=== PATIENT | male | born 1935 | race African-American/Black ===

== ENCOUNTER 2022-06-13 09:53 | Emergency (ER) | payer OTHER ==
--- OUTSIDE RECORDS SUMMARY | 2022-06-13 09:57 | XMS REPORT | Clinical Summary ---
:1935 Author Organization [facility] MD [facility] Address [address] [place] [address] Care Team Providers Name Role Phone Barry Shin MD Primary Care Provider Del Rivera Unavailable Td Coyne MD Unavailable Allergies Active Allergy Reactions Severity Noted Date Comments Penicillin Hives, Itching High 08/31/2016 Medications Medication Sig Dispensed Refills Start Date End Date Status aspirin 81 mg Chew 1 tablet 0 Ac tive chewable tablet daily. lisinopril Take 1 tablet by 0 Ac tive (PRINIVIL,ZESTRIL) 20 mouth daily. mg tablet TRIAMTERENE-HYDROCHLO Take 0.5 tablets by 0 Active ROTHIAZID ORAL mouth daily. multivitamin capsule Take 1 capsule by 0 Active mouth daily. pravastatin Take 40 mg by mouth 0 Active (PRAVACHOL) 40 mg daily. tablet tamsulosin HCl Take 1 capsule by 0 Active (TAMSULOSIN ORAL) mouth daily. finasteride (PROSCAR) Take 5 mg by mouth 0 Active 5 mg tablet daily. brimonidine 0.2% Administer 1 drop 0 Active ophthalmic solution to both eyes twice daily. timolol (BETIMOL) Administer 1 drop 0 Active 0.25 % ophthalmic to both eyes at solution bedtime. latanoprost (XALATAN) Administer 1 drop 0 Active 0.005% ophthalmic to both eyes daily. solution bisacodyl (DULCOLAX) Take 5 mg by mouth 0 Active 5 mg EC tablet once as needed. polyethylene glycol Take 17 g by mouth 0 Active (MIRALAX) 17 g packet as needed. calcium Take 1 tablet by 0 Act mary anne carbonate-vitamin D3 mouth daily. (calcium-vitamin D) 500 mg - 200 units (1,250 mg calcium carbonate) tablet morphine (LAWANDA) 10 Take 10 mg by mouth 0 Active mg 24 hr daily. capsuleIndications: chronic pain, 10 mg at night leuprolide, 3 month, Inject 22.5 mg into 0 Active (LUPRON DEPOT) 22.5 the shoulder, mg injection thigh, or buttocks every 3 (three) months. LAST DOSE 05/07/2018 sildenafil (VIAGRA) Take 25 mg by mouth 0 Active 25 MG tablet as needed for erectile dysfunction. 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 Removed part of sternum and subs eqently ribs due to infe ction. CIRCUMCISION, PRIMARY 10/01/2015 - 09/30/2016 CARPAL TUNNEL RELEASE Right Medical History Medical History Date Comments Prostate cancer 11/2017 Hypertension Mixed hyperlipidemia Type 2 diabetes mellitus Glaucoma Osteoarthritis Benign prostatic hyperplasia Nephrolithiasis Legal blindness Carpal tunnel syndrome Family History Medical History Relation Name Comments Prostate cancer Brother 1 Prostate cancer Brother 2 Diabetes Mother Hypertension Mother Breast cancer Sister Diabetes Sister Heart disease Sister Relation Name Status Comments Brother 1 Brother 2 Alive Mother Sister Social History Tobacco Use Types Packs/Day Years Used Date Former Smoker Cigarettes 1 32 04/23/1948 - 0 04/23/1980 Smokeless Tobacco: Never Used Alcohol Use Standard Drinks/Week Comments No 0 (1 standard drink = 0.6 oz pure alcoho l) Sex Assigned at Date Recorded Not on file Obstetrics History Last Filed Vital Signs Not on file Plan of Treatment Health Maintenance Due Date Last Done Comments COVID-19 Vaccination (#1) 1935 Results Not on fileafter 06/13/2021 Insurance Payer Benefit Plan / Subscriber ID Effective Dates Phone Addre ss Type Group MEDICARE MEDICARE PART [id number] 1992-Maria De Jesus [phone] [employer] Medicare A AND B t 2 SOLUTIONS [address] [place] [address] Care Teams 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
--- OUTSIDE RECORDS SUMMARY | 2022-06-13 09:59 | XMS REPORT | Continuity of Care Document ---
:[address] [facility] t Address [address] [place] [address] Care Team Providers Name Role Phone Barry Shin MD Primary Care Physician ALKA Attending Clinician Unavailable DAIANA HERNANDEZ Attending Clinician Unavailable Daiana James Attending Clinician YASIR SHRESTHA Attending Clinician Unavailable Yasir Shrestha MD Attending Clinician EDWARD MARTINEZ Attending Clinician Unavailable Lino Mcnamara Attending Clinician Edward Martinez MD Attending Clinician CARROL MALLORY Attending Clinician Unavailable Carrol Mallory DO Attending Clinician ALKA Admitting Clinician Unavailable Payers Payer Name Policy Type Policy Number Effective Date Expiration Date [facility] [id number] 2005 00:00:00 Problems Condition Condition Condition Status Onset Resolution Last Treating Co mments Source Name Details Category Date Date Treatment Clinician Date Erectile Erectile Disease Active 2017-10 Unive rs dysfunctio dysfunctio 10-23 it y of n due to n due to 00:00: [place] arterial arterial 00 insufficie insufficie [facility] 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 it y of on on 00:00: [place] 00 [facility] Pain due Pain due Disease Active Unive rs to to 04-23 [place] of neoplastic neoplastic [place] disease disease 00 [place] Mirela vizcarra [facility] Tinnitus Tinnitus Disease Active Unive rs 04-20 ity of 00:00: [place] 00 MD Mirela vizcarra [facility] 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 00:00: [place] 00 MD Mirela vizcarra [facility] Elevated Elevated Disease Active Unive rs prostate prostate 04-20 ity of specific specific 00:00: [place] antigen antigen 00 (PSA) (PSA) [facility] 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 00 MD Mirela vizcarra [facility] No known No known Disease Unive rs active active ity of problems problems [facility] Allergies, Adverse Reactions, Alerts Allergy Allergy Status Severity Reaction(s) Onset Inactive Treating Comm ents Source Name Type Date Date Clinician Penicill Propensi Active Itching 2015-10 Unive rs in ty to 11-01 ity of adverse 00:00: [place] reaction 00 MD giuseppe Dietz [facility] PENICILL DRUG Active High Hives 2015-10 Univers IN INGREDI 11-01 ity of 00:00: [place] 00 Medical Branch Family History Family Member Diagnosis Comments Start Date Stop Date Source Natural brother Prostate cancer [facility] [place] [facility] [place] Natural mother Diabetes [facility] Dillan [facility] [place] Natural mother Hypertension [facility] [place] MD Grimaldo Cance r [place] Natural sister Breast cancer [facility] [place] [facility] [place] Natural sister Diabetes [facility] Dillan Cance r [place] Natural sister Heart disease [facility] [place] Cance r [place] Social History Social Habit Start Date Stop Date Quantity Comments Source Exposure to 2022-03-12 2022-03-22 Not sure [facility] SARS-CoV-2 (event) 00:00:00 19:33:00 [facility] Alcohol intake 2019-09-09 2019-09-09 Current University of 00:00:00 00:00:00 non-drinker of Rima nguyen alcohol [facility] (finding) Cigarettes smoked 2018-04-23 2018-04-23 Univers ity of current (pack per 00:00:00 00:00:00 [place] Lore Grimaldo ) - Reported Cancer Ce nter Cigarette 2018-04-23 2018-04-23 University of pack-years 00:00:00 00:00:00 [place] MD Payan [facility] Tobacco use and 2018-04-23 2018-04-23 Smokeless Universit y of exposure 00:00:00 00:00:00 tobacco non-user [facility] History of tobacco 1948-04-23 1980-04-23 Cigarette Smoker University of use 00:00:00 00:00:00 [place] MD Schuyler dial [facility] At [birth year] [facility] [place] MD Payan [facility] Smoking Status Start Date Stop Date Source Ex-smoker 2018-04-23 00:00:00 2018-04-23 [facility] Medications Ordered Filled Start Stop Current Ordering Indication Dosage Frequency Signature Comments Components Source Medication Medication Date Date Medication? Clinician (SIG) Name Name cefdinir 2021- No 300mg 300 mg, Univ ers (OMNICEF) 03-23 Oral, ity of capsule 300 02:45: 01:53 ONCE, 1 [place] mg 00 :00 dose, On Medical Wed Branch 03/22/22 at 2145, MICHEAL
Re ason for Anti-Infec tive: Documented Infection< br>Documen jane Infection Site: Urine
D uration of Therapy: 7 days cefdinir 2021- Yes [id number] 300mg Take 1 Univers 300 mg 03-22 capsule by ity of capsule 00:00: 04:59 mouth 2 [place] 00 :00 (two) Medical times Branch daily for 10 days. iopamidol 2021- No [id number] 120mL 120 mL, Univers (ISOVUE 4-04 04-04 Intravenou ity o f 370-500 mL) 22:40: 22:40 s, ONCE, 1 [place] injection 00 :00 dose, On Medica l 120 mL 01/02/22 Branch at 1745, Routine docusate Yes [id number] 250mg Take 1 Un justino sodium 250 4-04 capsule by ity of mg capsule 00:00: mouth [place] 00 daily. Medical Branch ondansetron Yes [id number] 4mg Take 1 Univers 4 mg 4-04 tablet by ity of disintegrat 00:00: mouth [place] ing tablet 00 every 4 Medica l (four) Branch hours as needed for Nausea and Vomiting (N/V). polyethylen Yes [id number] 1{packe Take 1 Univers e glycol 4-04 t} Packet by ity of 3350 00:00: mouth [place] (MIRALAX) 00 every 24 Medica l 17 gram (twenty-fo Branch powder ur) hours as needed for Constipati on. docusate Yes [id number] 250mg Take 1 Un justino sodium 250 4-04 capsule by ity of mg capsule 00:00: mouth [place] 00 daily. Medical Branch ondansetron Yes [id number] 4mg Take 1 Univers 4 mg 4-04 tablet by ity of disintegrat 00:00: mouth [place] ing tablet 00 every 4 Medica l (four) Branch hours as needed for Nausea and Vomiting (N/V). polyethylen Yes [id number] 1{packe Take 1 Univers e glycol 4-04 t} Packet by ity of 3350 00:00: mouth [place] (MIRALAX) 00 every 24 Medica l 17 gram (twenty-fo Branch powder ur) hours as needed for Constipati on. docusate Yes [id number] 250mg Take 1 Un justino sodium 250 4-04 capsule by ity of mg capsule 00:00: mouth [place] 00 daily. Medical Branch ondansetron Yes [id number] 4mg Take 1 Univers 4 mg 4-04 tablet by ity of disintegrat 00:00: mouth [place] ing tablet 00 every 4 Medica l (four) Branch hours as needed for Nausea and Vomiting (N/V). polyethylen Yes [id number] 1{packe Take 1 Univers e glycol 4-04 t} Packet by ity of 3350 00:00: mouth [place] (MIRALAX) 00 every 24 Medica l 17 gram (twenty-fo Branch powder ur) hours as needed for Constipati on. docusate Yes [id number] 250mg Take 1 Un justino sodium 250 4-04 capsule by ity of mg capsule 00:00: mouth [place] 00 daily. Medical Branch ondansetron Yes [id number] 4mg Take 1 Univers 4 mg 4-04 tablet by ity of disintegrat 00:00: mouth [place] ing tablet 00 every 4 Medica l (four) Branch hours as needed for Nausea and Vomiting (N/V). polyethylen Yes [id number] 1{packe Take 1 Univers e glycol 4-04 t} Packet by ity of 3350 00:00: mouth [place] (MIRALAX) 00 every 24 Medica l 17 gram (twenty-fo Branch powder ur) hours as needed for Constipati on. cefTRIAXone 2021- No 1000mg 1,000 mg, Univers (ROCEPHIN) 11-29 IV ity of 1,000 mg in 07:45: 07:10 Piggyback, [place] NaCl 0.9% 00 :00 ONCE, 1 Medical (NS) 50 mL dose, On Branc h MINI-BAG Sun11/29/21 at 0145, Administer over 30 Minutes, 50 mL
R vianca for Anti-Infec tive: Empiric Therapy for Suspected Infection< br>Empiric Therapy Site: Urine
D uration of therapy: 72 hours ondansetron 2021- No 4mg 4 mg, Slow Univers (ZOFRAN 11-29 IV Push, ity of (PF)) 06:30: 05:52 ONCE, 1 [place] injection 4 00 :00 dose, On Medi julio mg Sun11/29/21 Branch at 0030, MICHEAL ondansetron Yes [id number] 4mg Take 1 Univers 4 mg 3-01 tablet by ity of disintegrat 00:00: mouth [place] ing tablet 00 every 8 Medica l (eight) Branch hours as needed for Nausea and Vomiting (N/V). ondansetron Yes [id number] 4mg Take 1 Univers 4 mg 3-01 tablet by ity of disintegrat 00:00: mouth [place] ing tablet 00 every 8 Medica l (eight) Branch hours as needed for Nausea and Vomiting (N/V). ondansetron Yes [id number] 4mg Take 1 Univers 4 mg 3-01 tablet by ity of disintegrat 00:00: mouth [place] ing tablet 00 every 8 Medica l (eight) Branch hours as needed for Nausea and Vomiting (N/V). ondansetron Yes [id number] 4mg Take 1 Univers 4 mg 3-01 tablet by ity of disintegrat 00:00: mouth [place] ing tablet 00 every 8 Medica l (eight) Branch hours as needed for Nausea and Vomiting (N/V). ondansetron Yes [id number] 4mg Take 1 Univers 4 mg 3-01 tablet by ity of disintegrat 00:00: mouth [place] ing tablet 00 every 8 Medica l (eight) Branch hours as needed for Nausea and Vomiting (N/V). cephALEXin 2021- No [id number] 500mg Take 1 Univers (KEFLEX) 3-01 03-09 capsule by ity of 500 mg 00:00: 05:59 mouth 3 [place] capsule 00 :00 (three) Medical times Branch daily for 7 days. aspirin 81 Yes 1{tbl} Chew 1 Uni vers mg chewable 2-12 tablet ity of tablet 13:08: daily. [place] 19 [facility] lisinopril Yes 1{tbl} Take 1 Uni vers (PRINIVIL,Z 2-12 tablet by ity of ESTRIL) 20 13:08: mouth [place] mg tablet 19 daily. MD [facility] TRIAMTERENE Yes .5{tbl} Take 0.5 Univers -HYDROCHLOR 2-12 tablets by it y of OTHIAZID 13:08: mouth [place] ORAL 19 daily. MD Mirela vizcarra [facility] [place] multivitami Yes 1{capsu Take 1 U nivers n capsule 2-12 le} capsule by ity of 13:08: mouth [place] 19 daily. MD Mirela vizcarra [facility] pravastatin Yes 40mg Take 40 mg Univers (PRAVACHOL) 2-12 by mouth ity of 40 mg 13:08: daily. [place] tablet 19 MD Mireal vizcarra [facility] tamsulosin Yes 1{capsu Take 1 Un justino HCl 2-12 le} capsule by ity of (TAMSULOSIN 13:08: mouth [place] ORAL) 19 daily. MD Mirela vizcarra [facility] finasteride Yes 5mg Take 5 mg U nivers (PROSCAR) 5 2-12 by mouth ity of mg tablet 13:08: daily. [place] 19 [facility] brimonidine Yes 1[drp] Administer Univers 0.2% 2-12 1 drop to ity of ophthalmic 13:08: [place] eyes [place] solution 19 twice MD daily. [facility] timolol Yes 1[drp] Administer Un justino (BETIMOL) 2-12 1 drop to ity o f 0.25 % 13:08: both eyes [place] ophthalmic 19 at MD [place] [facility]. [facility] aspirin 81 Yes 1{tbl} Chew 1 Uni vers mg chewable 2-12 tablet ity of tablet 13:08: daily. MD Mirela vizcarra [facility] lisinopril Yes 1{tbl} Take 1 Uni vers (PRINIVIL,Z 2-12 tablet by ity of ESTRIL) 20 13:08: mouth [place] mg tablet 19 daily. MD Mirela vizcarra [facility] latanoprost Yes 1[drp] Administer Univers (XALATAN) 2-12 1 drop to ity o f 0.005% 13:08: both eyes [place] ophthalmic 19 daily. [facility] TRIAMTERENE Yes .5{tbl} Take 0.5 Univers -HYDROCHLOR 2-12 tablets by it y of OTHIAZID 13:08: mouth [place] ORAL 19 daily. MD Mirela vizcarra [facility] multivitami Yes 1{capsu Take 1 U nivers n capsule 2-12 le} capsule by ity of 13:08: mouth [place] 19 daily. MD Anderso [facility] pravastatin Yes 40mg Take 40 mg Univers (PRAVACHOL) 2-12 by mouth ity of 40 mg 13:08: daily. [place] tablet 19 MD Mirela vizcarra [facility] tamsulosin Yes 1{capsu Take 1 Un justino HCl 2-12 le} capsule by ity of (TAMSULOSIN 13:08: mouth [place] ORAL) 19 daily. MD Mirela vizcarra [facility] finasteride Yes 5mg Take 5 mg U nivers (PROSCAR) 5 2-12 by mouth ity of mg tablet 13:08: daily. [place] 19 MD Mirela vizcarra [facility] brimonidine Yes 1[drp] Administer Univers 0.2% 2-12 1 drop to ity of ophthalmic 13:08: [place] eyes [place] solution 19 twice MD [facility]. [facility] timolol Yes 1[drp] Administer Un justino (BETIMOL) 2-12 1 drop to ity o f 0.25 % 13:08: both eyes [place] ophthalmic 19 at MD [place] bedtime. [facility] latanoprost Yes 1[drp] Administer Univers (XALATAN) 2-12 1 drop to ity o f 0.005% 13:08: both eyes [place] ophthalmic 19 daily. MD elly vizcarra [facility] bisacodyl Yes 5mg Take 5 mg Uni vers (DULCOLAX) 2-12 by mouth ity o f 5 mg EC 13:08: once as [place] tablet 19 needed. MD Mirela vizcarra [facility] polyethylen Yes 17g Take 17 g U nivers e glycol 2-12 by mouth ity of (MIRALAX) 13:08: [place] needed. [place] 17 g packet 19 MD Mirela vizcarra [facility] bisacodyl Yes 5mg Take 5 mg Uni vers (DULCOLAX) 2-12 by mouth ity o f 5 mg EC 13:08: once as [place] tablet 19 needed. MD Mirela vizcarra [facility] calcium Yes 1{tbl} Take 1 Univer s carbonate-v 2-12 tablet by ity of itamin D3 13:08: mouth [place] (calcium-vi 19 daily. MD tamin D) Anderso 500 mg - n 200 units Cancer (1,250 mg [place] calcium carbonate) tablet morphine Yes chronic 10mg Take 10 mg Univers (LAWANDA) 10 2-12 pain by mouth ity of mg 24 hr 13:08: daily. [place] capsule 19 MD Mirela vizcarra [facility] leuprolide, Yes 22.5mg Inject Un justino 3 month, 2-12 22.5 mg ity of (LUPRON 13:08: into the [place] DEPOT) 22.5 19 shoulder, MD mg thigh, or Anderso injection buttocks n every 3 Cancer (three) Center months. LAST DOSE 05/07/2018 sildenafil Yes 25mg Take 25 mg U nivers (VIAGRA) 25 2-12 by mouth ity of MG tablet 13:08: as needed Al[place] as 19 for erectile Anderso [facility]an [facility] polyethylen Yes 17g Take 17 g U nivers e glycol 2-12 by mouth ity of (MIRALAX) 13:08: as needed. [place] 17 g packet 19 MD Mirela vizcarra [facility] calcium Yes 1{tbl} Take 1 Univer s carbonate-v 2-12 tablet by ity of itamin D3 13:08: mouth [place] (calcium-vi 19 daily. MD clem Galvan) Anderso 500 mg - n 200 units Cancer (1,250 mg [place] calcium carbonate) tablet morphine Yes chronic 10mg Take 10 mg Univers (LAWANDA) 10 2-12 pain by mouth ity of mg 24 hr 13:08: daily. [place] capsule 19 MD Mirela vizcarra [facility] leuprolide, Yes 22.5mg Inject Un justino 3 month, 2-12 22.5 mg ity of (LUPRON 13:08: into the [place] DEPOT) 22.5 19 shoulder, MD mg thigh, or Anderso injection buttocks n every 3 Cancer (three) Center months. LAST DOSE 05/07/2018 sildenafil Yes 25mg Take 25 mg U nivers (VIAGRA) 25 2-12 by mouth ity of MG tablet 13:08: as needed [place] 19 for erectile Andjorge dysfumini vizcarra. [facility] aspirin 81 Yes 1{tbl} Chew 1 Uni vers mg chewable 2-12 tablet ity of tablet 13:08: daily. 19 MD [facility] lisinopril Yes 1{tbl} Take 1 Uni vers (PRINIVIL,Z 2-12 tablet by ity of ESTRIL) 20 13:08: mouth [place] mg tablet 19 daily. MD Mirela vizcarra [facility] TRIAMTERENE Yes .5{tbl} Take 0.5 Univers -HYDROCHLOR 2-12 tablets by it y of OTHIAZID 13:08: mouth [place] ORAL 19 daily. MD Mirela vizcarra [facility] multivitami Yes 1{capsu Take 1 U nivers n capsule 2-12 le} capsule by ity of 13:08: mouth [place] 19 daily. MD Mirela vizcarra [facility] pravastatin Yes 40mg Take 40 mg Univers (PRAVACHOL) 2-12 by mouth ity of 40 mg 13:08: daily. [place] tablet 19 [facility] tamsulosin Yes 1{capsu Take 1 Un justino HCl 2-12 le} capsule by ity of (TAMSULOSIN 13:08: mouth [place] ORAL) 19 daily. [facility] finasteride Yes 5mg Take 5 mg U nivers (PROSCAR) 5 2-12 by mouth ity of mg tablet 13:08: daily. MD [facility] brimonidine Yes 1[drp] Administer Univers 0.2% 2-12 1 drop to ity of ophthalmic 13:08: both eyes [place] solution 19 twice MD [facility]. [facility] timolol Yes 1[drp] Administer Un justino (BETIMOL) 2-12 1 drop to ity o f 0.25 % 13:08: both eyes [place] ophthalmic 19 at MD [place] bedtime. [facility] latanoprost Yes 1[drp] Administer Univers (XALATAN) 2-12 1 drop to ity o f 0.005% 13:08: both eyes [place] ophthalmic 19 daily. [facility] bisacodyl Yes 5mg Take 5 mg Uni vers (DULCOLAX) 2-12 by mouth ity o f 5 mg EC 13:08: once as [place] tablet 19 needed. MD Mirela vizcarra [facility] polyethylen Yes 17g Take 17 g U nivers e glycol 2-12 by mouth ity of (MIRALAX) 13:08: as needed. [place] 17 g packet 19 MD Mirela vizcarra [facility] calcium Yes 1{tbl} Take 1 Univer s carbonate-v 2-12 tablet by ity of itamin D3 13:08: mouth [place] (calcium-vi 19 daily. MD clem Galvan) Anderso 500 mg - n 200 units Cancer (1,250 mg [place] calcium carbonate) tablet morphine Yes chronic 10mg Take 10 mg Univers (LAWANDA) 10 2-12 pain by mouth ity of mg 24 hr 13:08: daily. [place] capsule 19 MD Mirela vizcarra [facility] leuprolide, Yes 22.5mg Inject Un justino 3 month, 2-12 22.5 mg ity of (LUPRON 13:08: into the [place] DEPOT) 22.5 19 shoulder, mg thigh, or Anderso injection buttocks n every 3 Cancer (three) Center months. LAST DOSE 05/07/2018 sildenafil Yes 25mg Take 25 mg U nivers (VIAGRA) 25 2-12 by mouth ity of MG tablet 13:08: as needed [place] 19 for MD radha Dietz dysfunctiwallace n n. [facility] Vital Signs Vital Name Observation Time Observation Value Comments Source Systolic blood 2022-03-23 05:00:00 121 mm[facility]Hg[facility] Diastolic blood 2022-03-23 05:00:00 80 mm[Hg] [facility] Heart rate 2022-03-23 05:00:00 79 /min [facility] Respiratory rate 2022-03-23 05:00:00 17 /min [facility] Oxygen saturation in 2022-03-23 05:00:00 98 /min [facility] Arterial blood by [facility] Pulse oximetry Branch Body temperature 2022-03-23 00:39:00 37.11 Maya [facility] Systolic blood 2022-03-10 17:06:16 114 mm[Hg] [facility] sity of pressure [place] [facility] Diastolic blood 2022-03-10 17:06:16 73 mm[Hg] Unive rsity of pressure [place] [facility] Heart rate 2022-03-10 17:06:16 76 /min [facility] [place] [facility] Body temperature 2022-03-10 17:06:16 36.39 Maya [facility] [place] [facility] Respiratory rate 2022-03-10 17:06:16 16 /min [facility] [place] [facility] Body height 2022-03-10 16:14:00 167.6 cm Universi ty [facility] [place] [facility] Body weight 2022-03-10 16:14:00 92.534 kg Universi ty [facility] [place] [facility] BMI 2022-03-10 16:14:00 32.93 kg/m2 Universi ty [facility] [place] [facility] Oxygen saturation in 2022-03-10 16:14:00 98 /min University of Arterial blood by [facility] julio Pulse oximetry Branch Systolic blood 2022-01-03 02:53:00 131 mm[Hg] Univer sity of pressure [place] [facility] Diastolic blood 2022-01-03 02:53:00 80 mm[Hg] Unive rsity of pressure [place] [facility] Heart rate 2022-01-03 02:53:00 85 /min Universi ty [facility] [place] [facility] Body temperature 2022-01-03 02:53:00 36.83 Maya [facility] [place] [facility] Respiratory rate 2022-01-03 02:53:00 20 /min [facility] [place] [facility] Body weight 2022-01-03 02:53:00 92.534 kg [facility]i [facility] [place] [facility] BMI 2022-01-03 02:53:00 32.93 kg/m2 [facility]i [facility] [place] [facility] Oxygen saturation in 2022-01-03 02:53:00 100 /min University of Arterial blood by [place] Medi julio Pulse oximetry Branch Systolic blood 2022-01-02 19:33:00 135 mm[Hg] Univer sity of pressure [place] [facility] Diastolic blood 2022-01-02 19:33:00 70 mm[Hg] Unive rsity of pressure [place] [facility] Heart rate 2022-01-02 19:33:00 108 /min [facility]i [facility] [place] [facility] [place] Body temperature 2022-01-02 19:33:00 36.44 Maya [facility] [place] [facility] Respiratory rate 2022-01-02 19:33:00 18 /min [facility] weight 2022-01-02 19:33:00 92.534 kg [facility] BMI 2022-01-02 19:33:00 32.93 kg/m2 [facility] Oxygen saturation in 2022-01-02 19:33:00 97 /min University of Arterial blood by [facility] Pulse oximetry Branch Systolic blood 2021-11-29 07:00:00 186 mm[Hg] [facility] Diastolic blood 2021-11-29 07:00:00 70 mm[Hg] [facility] Heart rate 2021-11-29 07:00:00 57 /min [facility] Respiratory rate 2021-11-29 07:00:00 21 /min [facility] Oxygen saturation in 2021-11-29 07:00:00 98 /min [facility] Arterial blood by [facility] Pulse oximetry Branch Body temperature 2021-11-29 05:10:00 36.17 Maya [facility] Body height 2021-11-29 05:10:00 167.6 cm [facility] Body weight 2021-11-29 05:10:00 91.627 kg [facility] BMI 2021-11-29 05:10:00 32.60 kg/m2 [facility] Procedures Procedure Date / Time Performing Clinician Source Performed URINALYSIS 2022-03-23 01:05:00 Daiana Hernandez [facility] CONSENT/REFUSAL FOR 2022-01-03 02:35:24 Doctor Unassigned, No Un [facility] DIAGNOSIS AND TREATMENT Name Medical Branch CT ABDOMEN PELVIS W 2022-01-02 22:42:00 Yasir Shrestah [facility] CONTRAST [facility] POCT GLUCOSE(AGE 2022-01-02 21:28:00 Yasir Shrestha [facility] >30DAYS) Medical [place] POCT GLUCOSE 2022-01-02 21:26:00 Yasir Shrestha [place] [facility] [place] (AUTOMATED) [facility] COMP. METABOLIC PANEL 2022-01-02 21:18:00 Yasir Shrestha [facility] ([id number]) Medical Branch CBC WITH DIFF 2022-01-02 21:18:00 Yasir Shrestha [facility] PROTHROMBIN TIME / INR 2022-01-02 21:18:00 Yasir Shrestha [facility] ACTIVATED PARTIAL 2022-01-02 21:18:00 Yasir Shrestha [facility] THRMPLAS SIMBA [facility] Branch URINALYSIS 2022-01-02 21:18:00 Yasir Shrestha [facility] ASSIGNMENT OF BENEFITS 2022-01-02 20:05:35 Doctor Unassigned, No [facility] Name [facility] NOTICE OF PRIVACY 2022-01-02 19:15:05 Doctor Unassigned, No [facility] PRACTICES Name Medical [place] CONSENT/REFUSAL FOR 2022-01-02 19:12:46 Doctor Unassigned, No [facility] DIAGNOSIS AND TREATMENT Name [facility] BASIC METABOLIC PANEL 2021-11-29 06:14:00 [facility] (NA, K, CL, CO2, Medical Branch GLUCOSE, BUN, CREATININE, CA) CBC WITH DIFF 2021-11-29 05:47:00 [facility] URINALYSIS 2021-11-29 05:47:00 [place] [facility] Plan of Care Planned Activity Planned Date Details Comments Source Future Scheduled 2022-05-27 COVID-19 Vaccination Uni [facility] [place] Test 11:24:52 (#1) [code = COVID-19 [facility] Vaccination (#1)] Center Future Scheduled 2022-05-27 COVID-19 Vaccination [facility] [place] Test 11:24:52 (#1) [code = COVID-19 And erson Cancer Vaccination (#1)] Center Future Scheduled 2022-05-27 COVID-19 Vaccination [facility] [place] Test 11:24:52 (#1) [code = COVID-19 And erson Cancer Vaccination (#1)] Center Encounters Start End Encounter Admission Attending Care Care Encounter Source Date/Time Date/Time Type Type Clinicians Facility Department ID 2022-04-11 2022-04-11 Outpatient DESTINEE YOUNG [id number] [place] 11:41:00 11:41:00 HN [id number] [facility] 2022-03-22 2022-03-23 Emergency X DAVID, [facility] ERT [id number] Univers 19:32:00 00:11:00 DAIANA thomas [facility] 2022-03-22 2022-03-23 Emergency Hernandez, [facility] [id number] Univers 19:32:00 00:11:00 Daiana PJ [id number] i ty of [facility] 4.2.7.2.686 [facility] [id number] [address] 2022-03-10 2022-03-10 Emergency [facility] [id number] Univers 11:11:00 12:14:00 YASIR thomas [facility] 2022-03-10 2022-03-10 Emergency [facility] [id number] Univers 11:11:00 12:14:00 Yasir OLIVA [id number] i ty of [facility] 4.2.7.2.686 [facility] [id number] [address] 2022-01-02 2022-01-02 Emergency [facility] ERT [id number] Univers 21:57:00 22:37:00 EDWARD [facility] 2022-01-02 2022-01-02 Emergency X AIME [facility] ERT [id number] Univers 21:57:00 22:37:00 EDWARD [facility] 2022-01-02 2022-01-02 Emergency Lino Townsend [facility] 1.2. [id number] Univers 21:57:00 22:37:00 Edward Martinez PJ 350.1.13.10 ity of [place] 4.2.7.2.686 [facility] [id number] [address] 2022-01-02 2022-01-02 Emergency [facility] [id number] Univers 14:38:00 19:10:00 Yasir OLIVA 350.1.13.10 i ty of [place] 4.2.7.2.686 [facility] [id number] [place] [id number] [place] 2021-11-28 2021-11-29 Emergency X SINGER [facility] ERT [id number] Univers 23:14:00 01:29:00 CARROL thomas of [facility] 2021-11-28 2021-11-29 Emergency [facility] [id number] Univers 23:14:00 01:29:00 Carrol OLIVA 350.1.13.10 i ty of [place] 4.2.7.2.686 [facility] [id number] [address] Results Test Description Test Time Test Comments Results Result Comments Source ACTIVATED PARTIAL THRMPLAS SIMBA 2022-01-02 22:13:16 Test Item Value Reference Range Interpretation Comme nts APTT Patient (test code = See_Comment L [ Automated message] The 3173-2) system which ge nerated this result tra nsmitted reference range : 23 - 38 Seconds. The re ference range was not u sed to interpret this result as normal/abnormal . MYESHA (test code = MYESHA) The [facility] patient population mean normal value for aPTT is 30 seconds. Lab Interpretation (test Abnormal code = 42644-7) [id number] 22:10:15 Test Item Value Reference Range Interpretation Comments PROTIME PATIENT (test See_Comment [Auto mated message] code = 5964-2) The system ich generated this result transmitted ref erence range: 12.0 - 1 4.7 Seconds. The re ference range was not u sed to interpret this result as normal/abnor mal. INR (test code = 6301-6) Nor mal INR <1.1; Warfarin Therap eutic range 2.0 to 3. 0 or 2.5 to 3.5, dep ending upon the indica tions. Lab Interpretation (test Normal code = 71392-3) [facility] ([id number][facility]2022-01-02 22:01:56 Test Item Value Reference Range Interpretation Comments NA (test code = 135 mmol/L 135-145 7111774464) K (test code = 4.3 mmol/L 3.5-5.0 0114275805) CL (test code = 94 mmol/L 98-108 L 1125877635) CO2 TOTAL (test code = 28 mmol/L 23-31 6568358305) AGAP (test code = 2-16 5589826986) BUN (test code = 22 mg/dL 7-23 0486536151) GLUCOSE (test code = 122 mg/dL 70-110 H 9585214092) CREATININE (test code = 0.81 mg/dL 0.60-1.25 6564346575) TOTAL BILI (test code = 0.7 mg/dL 0.1-1.3 4076916443) CALCIUM (test code = 9.4 mg/dL 8.6-10.6 3739298392) T PROTEIN (test code = 8.3 g/dL 6.3-8.2 H 3040526138) ALBUMIN (test code = 4.9 g/dL 3.5-5.0 7196754970) ALK PHOS (test code = 112 U/L 34-122 5655700760) ALTv (test code = 16 U/L 5-50 2-6) AST(SGOT) (test code = 33 U/L 13-40 0236043048) eGFR (test code = mL/min/1.73m2 3121451384) MYESHA (test code = MYESHA) Association of Glomerular Filtration Rate (GFR) and Staging of Kidney Disease* + --+ --+ ------+| GFR (mL/min/1.73 m2) ?| With Kidney Damage ?| ?Without Kidney Damage+ --------+ --------+ +| ?>90 ?| ?Stage one ?| ? Normal ?+ ---+ ---+ -------+| ?60-89 ?| ?Stage two ?| ? Decreased GFR ? + --+ --+ ------+| ?30-59 ?| ?Stage three ?| ? Stage three ? + --+ --+ ------+| ?15-29 ?| ?Stage four ? | ? Stage four ?+ ---+ ---+ -------+| ?<15 (or dialysis) ? ?| ?Stage five ? | ? Stage five ?+ ---+ ---+ -------+ *Each stage assumes the associated GFR level has been in effect for at least three months. ?Stages 1 to 5, with or without kidney disease, indicate chronic kidney disease. Notes: Determination of stages one and two (with eGFR >59mL/min/1.73 m2) requires estimation of kidney damage for at least three months as defined by structural or functional abnormalities of the kidney, manifested by either:Pathological abnormalities or Markers of kidney damage (including abnormalities in the composition of the blood or urine or abnormalities in imaging tests). Lab Interpretation Abnormal (test code = 38455-1) [facility] WITH [id number] 21:52:11 Test Item Value Reference Range Interpretation Comments WBC (test code = See_Comment H [Automated 6690-2) message] The sy stem which generated this result transmitted reference range : 4.20 - 10.70 10*3/?L. The reference range was not used to interpret this result as normal/abnormal . RBC (test code = See_Comment [Automated 789-8) message] The sy stem which generated this result transmitted reference range : 4.26 - 5.52 10*6/?L. The reference range was not used to interpret this result as normal/abnormal . HGB (test code = 13.2 g/dL 12.2-16.4 718-7) HCT (test code = 41.0 % 38.4-49.3 4544-3) MCV (test code = 83.5 fL 81.7-95.6 787-2) MCH (test code = 26.9 pg 26.1-32.7 785-6) MCHC (test code = 32.2 g/dL 31.2-35.0 786-4) RDW-SD (test code = 45.0 fL 38.5-51.6 66731-6) RDW-CV (test code = 14.7 % 12.1-15.4 788-0) PLT (test code = See_Comment [Automated 777-3) message] The sy stem which generated this result transmitted reference range : 150 - 328 10*3/ ?L. The reference r lan was not used to interpret this result as normal/abnormal . MPV (test code = 10.7 fL 9.8-13.0 10514-7) NRBC/100 WBC (test See_Comment [Automat ed code = 1161531092) message] The system which generated this result transmitted reference range : 0.0 - 10.0 /100 WBCs. The refer ence range was not u sed to interpret th is result as normal/abnormal . NRBC x10^3 (test code <0.01 See_Comment [Auto mated = 9509387769) message] The s ystem which generated this result transmitted reference range : 10*3/?L. The reference range was not used to interpret this result as normal/abnormal . GRAN MAT (NEUT) % 82.0 % (test code = 770-8) IMM GRAN % (test code 0.90 % = 5244199595) LYMPH % (test code = 8.7 % 736-9) MONO % (test code = 6.8 % 5905-5) EOS % (test code = 1.2 % 713-8) BASO % (test code = 0.4 % 706-2) GRAN MAT x10^3(ANC) 9.96 10*3/uL 1.99-6.95 H (test code = 2386771857) IMM GRAN x10^3 (test 0.11 10*3/uL 0.00-0.06 H code = 7762773684) LYMPH x10^3 (test code 1.06 10*3/uL 1.09-3.23 L = 731-0) MONO x10^3 (test code 0.83 10*3/uL 0.36-1.02 = 742-7) EOS x10^3 (test code = 0.15 10*3/uL 0.06-0.53 711-2) BASO x10^3 (test code 0.05 10*3/uL 0.01-0.09 = 704-7) Lab Interpretation Abnormal (test code = 21850-9) [facility] GLUCOSE (AUTOMATED)2022-01-02 21:28:58 Test Item Value Reference Range Interpretation Comments POCT GLU (test code = 5639712618) 130 mg/dL 70-110 H Lab Interpretation (test code = Abnormal 83323-7) [facility] GLUCOSE(AGE >30DAYS)2022-01-02 21:28:00 Test Item Value Reference Range Interpretation Comments POCT Glu (age>30days) (test code = 130 mg/dL 70-110 A 3342) Lab Interpretation (test code = Abnormal 63004-7) [facility] METABOLIC PANEL (NA, K, CL, CO2, GLUCOSE, BUN, CREATININE, CA)2021-11-29 06:46:55 Test Item Value Reference Range Interpretation Comments NA (test code = 140 mmol/L 135-145 6657030412) K (test code = 3.7 mmol/L 3.5-5.0 0476245190) CL (test code = 102 mmol/L 98-108 2425940969) CO2 TOTAL (test code = 32 mmol/L 23-31 H 3976847797) AGAP (test code = 2-16 8867198942) BUN (test code = 11 mg/dL 7-23 1481042545) GLUCOSE (test code = 144 mg/dL 70-110 H 3641559033) CREATININE (test code = 0.78 mg/dL 0.60-1.25 6881142997) CALCIUM (test code = 8.7 mg/dL 8.6-10.6 5277534872) eGFR (test code = mL/min/1.73m2 2553620529) MYESHA (test code = MYESHA) Association of Glomerular Filtration Rate (GFR) and Staging of Kidney Disease* + --+ --+ ------+| GFR (mL/min/1.73 m2) ?| With Kidney Damage ?| ?Without Kidney Damage+ --------+ --------+ +| ?>90 ?| ?Stage one ?| ? Normal ?+ ---+ ---+ -------+| ?60-89 ?| ?Stage two ?| ? Decreased GFR ? + --+ --+ ------+| ?30-59 ?| ?Stage three ?| ? Stage three ? + --+ --+ ------+| ?15-29 ?| ?Stage four ? | ? Stage four ?+ ---+ ---+ -------+| ?<15 (or dialysis) ? ?| ?Stage five ? | ? Stage five ?+ ---+ ---+ -------+ *Each stage assumes the associated GFR level has been in effect for at least three months. ?Stages 1 to 5, with or without kidney disease, indicate chronic kidney disease. Notes: Determination of stages one and two (with eGFR >59mL/min/1.73 m2) requires estimation of kidney damage for at least three months as defined by structural or functional abnormalities of the kidney, manifested by either:Pathological abnormalities or Markers of kidney damage (including abnormalities in the composition of the blood or urine or abnormalities in imaging tests). Lab Interpretation Abnormal (test code = 04865-5) [facility] WITH [id number] 05:57:38 Test Item Value Reference Range Interpretation Comments WBC (test code = See_Comment [Automated 6690-2) message] The sy stem which generated this result transmitted reference range : 4.20 - 10.70 10*3/?L. The reference range was not used to interpret this result as normal/abnormal . RBC (test code = See_Comment L [Automated 789-8) message] The sy stem which generated this result transmitted reference range : 4.26 - 5.52 10*6/?L. The reference range was not used to interpret this result as normal/abnormal . HGB (test code = 11.2 g/dL 12.2-16.4 L 718-7) HCT (test code = 35.0 % 38.4-49.3 L 4544-3) MCV (test code = 82.4 fL 81.7-95.6 787-2) MCH (test code = 26.4 pg 26.1-32.7 785-6) MCHC (test code = 32.0 g/dL 31.2-35.0 786-4) RDW-SD (test code = 46.5 fL 38.5-51.6 66335-2) RDW-CV (test code = 15.7 % 12.1-15.4 H 788-0) PLT (test code = See_Comment [Automated 777-3) message] The sy stem which generated this result transmitted reference range : 150 - 328 10*3/ ?L. The reference r lan was not used to interpret this result as normal/abnormal . MPV (test code = 10.5 fL 9.8-13.0 42880-4) NRBC/100 WBC (test See_Comment [Automat ed code = 9471693286) message] The system which generated this result transmitted reference range : 0.0 - 10.0 /100 WBCs. The refer ence range was not u sed to interpret th is result as normal/abnormal . NRBC x10^3 (test code <0.01 See_Comment [Auto mated = 1248561800) message] The s ystem which generated this result transmitted reference range : 10*3/?L. The reference range was not used to interpret this result as normal/abnormal . GRAN MAT (NEUT) % 78.2 % (test code = 770-8) IMM GRAN % (test code 0.60 % = 4472176517) LYMPH % (test code = 11.8 % 736-9) MONO % (test code = 7.4 % 5905-5) EOS % (test code = 1.9 % 713-8) BASO % (test code = 0.1 % 706-2) GRAN MAT x10^3(ANC) 6.13 10*3/uL 1.99-6.95 (test code = 6165206151) IMM GRAN x10^3 (test 0.05 10*3/uL 0.00-0.06 code = 7441510309) LYMPH x10^3 (test code 0.93 10*3/uL 1.09-3.23 L = 731-0) MONO x10^3 (test code 0.58 10*3/uL 0.36-1.02 = 742-7) EOS x10^3 (test code = 0.15 10*3/uL 0.06-0.53 711-2) BASO x10^3 (test code <0.03 0.01-0.09 = 704-7) Lab Interpretation Abnormal (test code = 02093-2) [facility]"
[2022-06-13] MEDS ORDERED: NA CHLORIDE 0.9% 100 ML ONE (12:46)
[2022-06-13] MEDS ORDERED: NA CHLORIDE 0.9% 1,000 ML ONE (12:46)
[2022-06-13] MEDS ORDERED: CEFTRIAXONE 1000 MG/VIAL ONE (12:46)
--- NOTE | 2022-06-13 12:50 | RAD REPORT ---
EXAM DESCRIPTION: RAD - Chest Single View - 06/13/2022 12:42 pm CLINICAL HISTORY: COUGH Chest pain. COMPARISON: No comparisons FINDINGS: Portable technique limits examination quality. The lungs are grossly clear. The heart is normal in size. No displaced fractures. IMPRESSION: No acute intrathoracic process suspected.
[2022-06-13 12:51] LABS: Absolute Lymphocytes (CBC) 0.8 K/uL (0.7-4.9); Hematocrit 34.7 % (39.6-49.0); Lymphocytes % 8.7 % (15.3-44.8); MCV 80.7 fL (80-100); MPV 7.6 fL (7.6-11.3)
[2022-06-13 12:54] LABS: Urine Blood Trace-intact (Negative); Urine Glucose Negative (Negative); Urine Protein 3+ (Negative); Urine pH 8.5 (5.0-7.0)
[2022-06-13 13:12] LABS: Protime INR 1.23
[2022-06-13 13:17] LABS: Albumin 3.3 g/dL (3.4-5.0); Bilirubin Direct 0.2 mg/dL (0-0.2); Bilirubin Total 0.6 mg/dL (0.2-1.0); Magnesium 1.9 mg/dL (1.8-2.4); Protein, Total 7.3 g/dL (6.4-8.2); Troponin High Sensitivity 11.5 pg/mL (<58.9)
[2022-06-13 13:19] LABS: Urine Bacteria <20 /HPF (<20); Urine Mucus 2+ /HPF (None Seen); Urine RBC <5 /HPF (None Seen); Urine Triple Phosphate Crystal Many /HPF (None Seen)
[2022-06-13 13:23] LABS: Potassium 2.7 mmol/L (3.5-5.1)
--- NOTE | 2022-06-13 15:46 | ER ---
Nurse's Notes [facility] Name: Artur Kohler Jr Age: 87 yrs Sex: Male : 1935 Arrival Date: 06/13/2022 Time: 09:55 Bed 25 Private MD: Diagnosis: Hypokalemia;Weakness;UTI/ Urinary tract infection, site not specified;Anorexia;Dementia in other diseases classified elsewhere without behavioral disturbance;Coronavirus infection, unspecified;SARS-associated coronavirus as the cause of diseases classified elsewhere Presentation: 06/13 11:07 Chief complaint: Spouse and/or significant other states: Pt on hospice for stage 4 jl7 prostate cancer, stage 4 dementia. reports he has had only water x 1.5 weeks due to vomiting, no medications in the last 3 days; Pt with suprapubic catheter, recently replaced, cloudy urine noted in tubing. Coronavirus screen: Vaccine status: Patient reports receiving the 2nd dose of the covid vaccine. At this time, the client does not indicate any symptoms associated with coronavirus-19. Ebola Screen: No symptoms or risks identified at this time. Initial Sepsis Screen: Does the patient meet any 2 criteria? No. Patient's initial sepsis screen is negative. Does the patient have a suspected source of infection? No. Patient's initial sepsis screen is negative. Risk Assessment: Do you want to hurt yourself or someone else? Patient reports no desire to harm self or others. Onset of symptoms was June 01, 2022. 11:07 Method Of Arrival: Wheelchair jl7 11:07 Acuity: ADELFO 2 jl7 Triage Assessment: 11:13 General: Appears in no apparent distress. uncomfortable, Behavior is calm, cooperative. jl7 Pain: Unable to use pain scale. Does not appear to understand pain scale. GI: Reports anorexia, nausea, vomiting. Historical: - Allergies: 11:13 No Known Allergies; jl7 - PMHx: 11:13 Dementia; prostate cancer; Hypertensive disorder; Diabetes mellitus; jl7 - PSHx: 11:13 suprapubic catheter; jl7 - Immunization history:: Client reports receiving the 2nd dose of the Covid vaccine. - Social history:: Smoking status: Patient denies any tobacco usage or history of. Screenin:40 Abuse screen: Denies threats or abuse. Nutritional screening: Has had N/V for 3 or more ap3 days. Tuberculosis screening: No symptoms or risk factors identified. Fall Risk Fall in past 12 months (25 points). Secondary diagnosis (15 points) IV access (20 points). Ambulatory Aid- None/Bed Rest/Nurse Assist (0 pts). Gait- Impaired (20 pts.). Mental Status- Oriented to own ability (0 pts). Total Blank Fall Scale indicates High Risk Score (45 or more points). Fall prevention measures have been instituted. Side Rails Up X 2 Placed Close to Nursing Station Frequent Obs/Assessments Occuring Family Present and informed to notify staff if the need to leave the bedside As available patient and family educated on Fall Prevention Program and Strategies. Assessment: 13:40 General: Appears ill, Behavior is calm, quiet. Pain: Denies pain. Neuro: Level of ap3 Consciousness is awake, obeys commands, Oriented to person, place, time, Speech quiet. Cardiovascular: Patient's skin is warm and dry. Respiratory: Airway is patent Respiratory effort is even, unlabored, Respiratory pattern is regular, symmetrical. GI: Abdomen is flat, non-distended, Parent/caregiver reports the patient having intolerance of food, intolerance of fluids. 13:40 : suprapubic catheter in place patient arrived with catheter in place. ap3 17:25 Reassessment: patient is up for discharge, awaiting completion IV potassium prior to ap3 discharging patient. 17:28 Reassessment: patient tolerated PO fluids well. patient did not cough, cheek fluids or ap3 choke during PO challenge. Vital Signs: 11:07 BP 116 / 80; Pulse 119; Resp 17; Temp 98.5; Pulse Ox 98% on R/A; Weight 85.73 kg; jl7 Height 5 ft. 6 in. (167.64 cm); Pain 0/10; 13:48 BP 130 / 103; Pulse 87; Resp 17; Pulse Ox 99% on R/A; ap3 15:03 BP 135 / 76; Pulse 86; Pulse Ox 98% on R/A; ap3 15:43 BP 120 / 62; Pulse 91; Pulse Ox 98% on R/A; ap3 16:29 BP 104 / 70; Pulse 94; Pulse Ox 100% on R/A; ap3 17:28 BP 106 / 72; Pulse 95; Pulse Ox 99% on R/A; ap3 11:07 Body Mass Index 30.51 (85.73 kg, 167.64 cm) jl7 ED Course: 09:55 Patient arrived in ED. rg4 11:13 Triage completed. jl7 11:13 Arm band placed on right wrist. jl7 12:05 Lauri Grimaldo MD is Attending Physician. gaudencio 12:10 Bed in low position. Call light in reach. Side rails up X 1. Door closed. Noise mb7 minimized. Warm blanket given. Client placed on continuous cardiac and pulse oximetry monitoring. NIBP monitoring applied. 12:11 Mely Hampton, RN is Primary Nurse. ap3 12:34 Inserted saline lock: 22 gauge in right antecubital area, using aseptic technique. ap3 Blood collected. 12:44 XRAY Chest (1 view) In Process Unspecified. EDMS 14:12 EKG done, by ED staff. tm3 15:42 Daniel Rangel MD is Hospitalizing Provider. gaudencio 15:53 COVID swab sent to lab. tm3 15:53 Initial lab(s) drawn, by wv, sent to lab. tm3 16:30 Admitting physician to see patient. ap3 17:25 No provider procedures requiring assistance completed. ap3 18:09 IV discontinued, intact, bleeding controlled, No redness/swelling at site. Pressure ap3 dressing applied. Administered Medications: 12:42 Drug: NS 0.9% 1000 ml Route: IV; Rate: 1 bolus; Site: right antecubital; ap3 16:20 Follow up: IV Status: Completed infusion ap3 12:42 Drug: Rocephin (cefTRIAXone) 1 grams Route: IV; Rate: per protocol; Site: right ap3 antecubital; 16:21 Follow up: IV Status: Completed infusion ap3 15:57 Drug: Potassium Chloride 20 mEq Route: IV; Rate: per protocol; Site: right antecubital; ap3 18:08 Follow up: Response: No adverse reaction; IV Status: Completed infusion ap3 15:57 Drug: NS 0.9% with KCl 20 mEq/L 1000 ml Route: IV; Rate: 125 ml/hr; Site: right ap3 antecubital; 18:08 Follow up: IV Status: Order to discontinue infusion; IV Intake: 250ml ap3 16:51 Not Given (Patient Refused): Pepcid (famotidine) 40 mg IVP once; dilute with 10 mL 0.9% ap3 NaCl; give over 2 minutes 17:22 Drug: Potassium Effervescent Tablet 25 mEq Route: PO; ap3 18:08 Follow up: Response: No adverse reaction ap3 Medication: 13:41 VIS not applicable for this client. ap3 Intake: 18:08 IV: 250ml; Total: 250ml. ap3 Outcome: 15:45 Decision to Hospitalize by Provider. [facility] 17:17 Discharge ordered by . [facility] 18:09 Condition: good ap3 18:09 Discharge instructions given to patient, Instructed on discharge instructions, follow up and referral plans. medication usage, Demonstrated understanding of instructions, follow-up care, medications, Prescriptions given X 4. 18:27 Discharged to home via wheelchair, with family. ap3 18:27 Patient left the ED. ap3 Signatures: Dispatcher [employer] EDMS Guerrero Nichols tm3 Lauri Grimaldo MD MD cha Garcia, Rubi rg4 Lali Molina RN RN jl7 Mely Hampton RN RN ap3 Sulema Figueroa mb7 Corrections: (The following items were deleted from the chart) 13:49 13:48 BP 130 / 93; Pulse 87bpm; Resp 17bpm; Pulse Ox 99% RA; ap3 ap3
--- NOTE | 2022-06-13 15:46 | EDPHYS ---
Physician Documentation [facility] Name: Artur Kohler Jr Age: 87 yrs Sex: Male : 1935 Arrival Date: 06/13/2022 Time: 09:55 Bed 25 Private MD: GABBY Physician Lauri Grimaldo HPI: 06/13 15:31 This 87 yrs old Black Male presents to ER via Wheelchair with complaints of Decreased gaudencio Appetite, Vomiting. 15:31 The patient presents to the emergency department with nausea. Onset: The gaudencio symptoms/episode began/occurred 3 day(s) ago. Possible causes: anorexia. The symptoms are aggravated by nothing. Associated signs and symptoms: The patient has no apparent associated signs or symptoms. Severity of symptoms: At their worst the symptoms were mild in the emergency department the symptoms are unchanged. The patient has experienced similar episodes in the past, several times. Historical: - Allergies: 11:13 No Known Allergies; jl7 - PMHx: 11:13 Dementia; prostate cancer; Hypertensive disorder; Diabetes mellitus; jl7 - PSHx: 11:13 suprapubic catheter; jl7 - Immunization history:: Client reports receiving the 2nd dose of the Covid vaccine. - Social history:: Smoking status: Patient denies any tobacco usage or history of. ROS: 15:37 Constitutional: Negative for fever, chills, and weight loss, Eyes: Negative for injury, gaudencio pain, redness, and discharge, ENT: Negative for injury, pain, and discharge, Neck: Negative for injury, pain, and swelling, Cardiovascular: Negative for chest pain, palpitations, and edema, Back: Negative for injury and pain, : Negative for injury, bleeding, discharge, and swelling, MS/Extremity: Negative for injury and deformity, Skin: Negative for injury, rash, and discoloration, Psych: Negative for depression, anxiety, suicide ideation, homicidal ideation, and hallucinations, Allergy/Immunology: Negative for hives, rash, and allergies, Endocrine: Negative for neck swelling, polydipsia, polyuria, polyphagia, and marked weight changes, Hematologic/Lymphatic: Negative for swollen nodes, abnormal bleeding, and unusual bruising. 15:37 Respiratory: Positive for cough. 15:37 Respiratory: Positive for 15:37 Abdomen/GI: Positive for nausea and vomiting, anorexia. 15:37 Neuro: Positive for weakness. Exam: 15:37 Constitutional: This is a well developed, well nourished patient who is awake, alert, gaudencio and in no acute distress. Head/Face: Normocephalic, atraumatic. Eyes: Pupils equal round and reactive to light, extra-ocular motions intact. Lids and lashes normal. Conjunctiva and sclera are non-icteric and not injected. Cornea within normal limits. Periorbital areas with no swelling, redness, or edema. ENT: Nares patent. No nasal discharge, no septal abnormalities noted. Tympanic membranes are normal and external auditory canals are clear. Oropharynx with no redness, swelling, or masses, exudates, or evidence of obstruction, uvula midline. Mucous membranes moist. Neck: Trachea midline, no thyromegaly or masses palpated, and no cervical lymphadenopathy. Supple, full range of motion without nuchal rigidity, or vertebral point tenderness. No Meningismus. Chest/axilla: Normal chest wall appearance and motion. Nontender with no deformity. No lesions are appreciated. Cardiovascular: Regular rate and rhythm with a normal S1 and S2. No gallops, murmurs, or rubs. Normal PMI, no JVD. No pulse deficits. Respiratory: Lungs have equal breath sounds bilaterally, clear to auscultation and percussion. No rales, rhonchi or wheezes noted. No increased work of breathing, no retractions or nasal flaring. Back: No spinal tenderness. No costovertebral tenderness. Full range of motion. Male : Normal genitalia with no discharge or lesions. Skin: Warm, dry with normal turgor. Normal color with no rashes, no lesions, and no evidence of cellulitis. MS/ Extremity: Pulses equal, no cyanosis. Neurovascular intact. Full, normal range of motion. Psych: Awake, alert, with orientation to person, place and time. Behavior, mood, and affect are within normal limits. 15:37 ECG was reviewed by the Attending Physician. 15:37 Abdomen/GI: Inspection: abdomen appears normal, Bowel sounds: normal, Palpation: soft, Liver: no appreciated palpable abnormalities, Hernia: not appreciated. Vital Signs: 11:07 BP 116 / 80; Pulse 119; Resp 17; Temp 98.5; Pulse Ox 98% on R/A; Weight 85.73 kg; jl7 Height 5 ft. 6 in. (167.64 cm); Pain 0/10; 13:48 BP 130 / 103; Pulse 87; Resp 17; Pulse Ox 99% on R/A; ap3 15:03 BP 135 / 76; Pulse 86; Pulse Ox 98% on R/A; ap3 15:43 BP 120 / 62; Pulse 91; Pulse Ox 98% on R/A; ap3 16:29 BP 104 / 70; Pulse 94; Pulse Ox 100% on R/A; ap3 17:28 BP 106 / 72; Pulse 95; Pulse Ox 99% on R/A; ap3 11:07 Body Mass Index 30.51 (85.73 kg, 167.64 cm) jl7 MDM: 12:05 Patient medically screened. [facility] 16:22 Differential diagnosis: Nonspecific abd pain, pancreatitis, diverticulitis, viral gaudencio gastroenteritis, gastroenteritis. Differential Diagnosis altered mental status. Data reviewed: vital signs, nurses notes, EMS record, lab test result(s), EKG, radiologic studies. Data interpreted: hydrologic engineer: rate is 91 beats/min, rhythm is regular, Pulse oximetry: on room air is 98 %. Test interpretation: by ED physician or midlevel provider: ECG, plain radiologic studies. Counseling: I had a detailed discussion with the patient and/or guardian regarding: the historical points, exam findings, and any diagnostic results supporting the discharge/admit diagnosis, lab results, radiology results, the need for further work-up and treatment in the hospital. 06/13 12:09 Order name: Basic Metabolic Panel; Complete Time: 15:18 [facility] 06/13 12:09 Order name: CBC with Diff; Complete Time: 15:18 [facility] 06/13 12:09 Order name: LFT's; Complete Time: 15:18 [facility] 06/13 12:09 Order name: Magnesium; Complete Time: 15:18 [facility] 06/13 12:09 Order name: NT PRO-BNP; Complete Time: 15:18 [facility] 06/13 12:09 Order name: PT-INR; Complete Time: 15:18 [facility] 06/13 12:09 Order name: Troponin HS; Complete Time: 15:18 [facility] 06/13 12:09 Order name: XRAY Chest (1 view); Complete Time: 15:18 [facility] 06/13 12:09 Order name: Urine Culture [facility] 06/13 12:09 Order name: Urine Microscopic Only; Complete Time: 15:18 [facility] 06/13 12:55 Order name: Urine Dipstick-Ancillary; Complete Time: 15:18 [facility] 06/13 15:19 Order name: SARS RAPID; Complete Time: 17:10 [facility] 06/13 15:30 Order name: Phosphorus; Complete Time: 17:10 [facility] 06/13 12:09 Order name: EKG; Complete Time: 12:10 [facility] 06/13 12:09 Order name: EKG - Nurse/Tech; Complete Time: 13:29 [facility] 06/13 12:09 Order name: IV Saline Lock; Complete Time: 12:34 [facility] 06/13 12:09 Order name: Labs collected and sent; Complete Time: 12:34 [facility] 06/13 12:09 Order name: O2 Per Protocol; Complete Time: 12:11 [facility] 06/13 12:09 Order name: O2 Sat Monitoring; Complete Time: 12:11 [facility] 06/13 12:09 Order name: Urine Dipstick-Ancillary (obtain specimen); Complete Time: 12:58 [facility] 06/13 17:10 Order name: PO challenge: JUICE; Complete Time: 17:22 [facility] EC:37 Rate is 88 beats/min. Rhythm is regular. QRS [place] is Normal. MO interval is normal. QRS gaudencio interval is normal at 441 msec. QT interval is normal. No Q waves. T waves are Normal in leads I, II, III, aVL, aVF, V1, V2, V3, V5, V6. ST Segment is depressed in leads I, II, III, aVL, aVF, V1, V2, V3, V4, V5, V6. Clinical impression: NSR w/ Non-specific ST/T Changes and No evidence of ischemia. Interpreted by me. Reviewed by me. Administered Medications: 12:42 Drug: NS 0.9% 1000 ml Route: IV; Rate: 1 bolus; Site: right antecubital; ap3 16:20 Follow up: IV Status: Completed infusion ap3 12:42 Drug: Rocephin (cefTRIAXone) 1 grams Route: IV; Rate: per protocol; Site: right ap3 antecubital; 16:21 Follow up: IV Status: Completed infusion ap3 15:57 Drug: Potassium Chloride 20 mEq Route: IV; Rate: per protocol; Site: right antecubital; ap3 18:08 Follow up: Response: No adverse reaction; IV Status: Completed infusion ap3 15:57 Drug: NS 0.9% with KCl 20 mEq/L 1000 ml Route: IV; Rate: 125 ml/hr; Site: right ap3 antecubital; 18:08 Follow up: IV Status: Order to discontinue infusion; IV Intake: 250ml ap3 16:51 Not Given (Patient Refused): Pepcid (famotidine) 40 mg IVP once; dilute with 10 mL 0.9% ap3 NaCl; give over 2 minutes 17:22 Drug: Potassium Effervescent Tablet 25 mEq Route: PO; ap3 18:08 Follow up: Response: No adverse reaction ap3 Disposition Summary: 06/13/22 17:17 Discharge Ordered Location: Home(06/13/22 17:17) gaudencio Problem: new(06/13/22 17:17) gaudencio Symptoms: have improved(06/13/22 17:17) gaudencio Condition: Stable(06/13/22 17:17) gaudencio Diagnosis - Hypokalemia(06/13/22 17:17) gaudencio - Weakness(06/13/22 17:17) gaudencio - UTI/ Urinary tract infection, site not specified(06/13/22 17:17) gaudencio - Anorexia(06/13/22 17:17) gaudencio - Dementia in other diseases classified elsewhere without behavioral gaudencio disturbance(06/13/22 17:17) - Coronavirus infection, unspecified(06/13/22 17:18) gaudencio - SARS-associated coronavirus as the cause of diseases classified elsewhere(06/13/22 gaudencio 17:18) Followup: gaudencio - With: Private Physician - When: 1 - 2 days - Reason: Recheck today's complaints, Continuance of care, Re-evaluation by your physician Discharge Instructions: - Discharge Summary Sheet gaudencio - Dementia gaudencio - Potassium Content of Foods gaudencio - Urinary Tract Infection, Adult gaudencio - Weakness gaudencio - Fatigue gaudencio - Urinary Tract Infection, Adult, [id number] gaudencio - Weakness, [id number] gaudencio - Hypokalemia gaudencio - Deconditioning gaudencio Forms: - Medication Reconciliation Form gaudencio - Thank You Letter gaudencio - Antibiotic Education gaudencio - Prescription Opioid Use gaudencio Prescriptions: - Augmentin ES-600 600-42.9 mg/5 mL Oral Suspension for Reconstitution - take 7.2 milliliters by ORAL route every 12 hours for 10 days Max = 875mg/dose; gaudencio 150 milliliter; Refills: 0, Product Selection Permitted - Zofran 4 mg Oral Tablet - take 1 tablet by ORAL route every 12 hours As needed; 20 tablet; Refills: 0, [facility] Product Selection Permitted - Pepcid 20 mg Oral Tablet - take 1 tablet by ORAL route every 12 hours for 21 days; 42 tablet; Refills: 0, [facility] Product Selection Permitted - Potassium Chloride 20 meq Oral Packet - take 1 packet by ORAL route once daily 1 packet in 6 (six) ounces of water or gaudencio juice; Take after meal; 14 packet; Refills: 0, Product Selection Permitted Signatures: Dispatcher [employer] EDLauri Valentine MD MD cha Leal, Jahala RN RN jl7 Mely Hampton RN RN ap3 Corrections: (The following items were deleted from the chart) 16:35 16:21 Misc. Order ordered. [facility] ap3 17:10 15:45 Inpatient Admission gaudencio gaudencio 17:10 15:45 Daniel Rangel [facility] gaudencio 17:10 15:45 Telemetry/MedSurg (Inpatient) gaudencio gaudencio 17:10 15:45 Fair [facility] gaudencio 17:10 15:45 an ongoing problem gaudencio gaudencio 17:10 15:45 have worsened [facility] gaudencio 17:10 15:45 Standard gaudencio gaudencio 17:10 15:45 gaudencio gaudencio 17:10 15:45 Weakness gaudencio gaudencio 17:10 15:45 Anorexia [facility] gaudencio 17:10 15:45 Dementia in other diseases classified elsewhere without behavioral disturbance - [facility] H[facility]ice Care gaudencio 17:10 15:45 Hypokalemia [facility] gaudencio 17:10 15:45 Dehydration [facility] gaudencio 17:10 15:46 UTI/ Urinary tract infection, site not specified [facility] gaudencio 17:10 16:23 Coronavirus infection, unspecified [facility] gaudencio 17:10 16:23 SARS-associated coronavirus as the cause of diseases classified elsewhere [facility]
[2022-06-13] MEDS ORDERED: NS KCL 20MEQ 1,000 ML IV ONE (15:57)
[2022-06-13] MEDS ORDERED: KCL 20 MEQ/100 mL IVPB 100 ML IV ONE (15:58)
[2022-06-13 16:18] LABS: SARS-CoV-2 Antigen Rapid Res Positive (Negative)
[2022-06-13] MEDS ORDERED: POTASSIUM 25 MEQ EFFERV TAB ONE (17:25)
--- NOTE | 2022-06-13 17:50 | P.CNS ---
Date of Consult: 06/13/22 Reason for Consult: Failure to Thrive Requesting Physician: Lauri Grimaldo Chief Complaint: Failure to Thrive History of Present Illness: Mr. 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 He is unable to provide much history given his advanced dementia. History was obtained from Ms. Huerta ( and MPOA), Mr. Caba (son), and Ms. Shepard (daughter). It appears that he has been enrolled in hospice, and over the last few days, he has not been interested in eating. His family is concerned that he may be "starving and dehydrated," so brought him to the Emergency Department for further evaluation. He is not endorsing and particularly concerns and appears comfortable in lying the hospital bed. Upon presentation, his vital signs were notable for a heart rate of 119 bpm. His laboratory studies were notable for a potassium of 2.7 and a glucose of 149. EKG revealed sinus rhythm without STEMI criteria. Chest x-ray revealed, "no acute intrathoracic process suspected." In the Emergency Department, he was given 1 L Normal Saline, ceftriaxone, and potassium chloride. General Internal Medicine service was consulted for possible admission. Allergies No Known Allergies Allergy (Unverified 06/13/22 17:53) Home medications list reviewed: Yes - Past Medical/Surgical History Diabetic: Yes -: Advanced Alzheimer's Dementia -: Metastatic Prostate Cancer -: Type II Diabetes Mellitus -: Hypertension Past Surgical History: Unable to obtain Psychosocial/ Personal History: Family History - non-contributory - Social History Alcohol use: No CD- Drugs: No Place of Residence: Home (with Home Hospice) Review of Systems is unable to be obtained Physical Examination Temperature: 98.5 F Blood pressure: 120/62 Heart rate: 91 bpm Respiratory rate: 17 breaths/minute SPO2: 99% on room air General: Alert, In no apparent distress, Oriented x1 (to self - baseline per family) HEENT: Atraumatic, PERRLA, Mucous membr. moist/pink, EOMI, Sclerae nonicteric Neck: Supple, JVD not distended Respiratory: Clear to auscultation bilaterally, Normal air movement Cardiovascular: No edema, Regular rate/rhythm, Normal S1 S2, No gallops, No rubs Gastrointestinal: Normal bowel sounds, Soft and benign, Non-distended, No tenderness, No rebound, No guarding Musculoskeletal: No clubbing Integumentary: No rashes Neurological: Normal speech, Cranial nerves 3-12 intact, Normal affect, Dementia Laboratory Data (last 24 hrs) 06/13/22 15:45: Phosphorus 2.9 06/13/22 12:31: PT 13.6 H, INR 1.23 06/13/22 12:31: WBC 9.80, Hgb 11.6 L, Hct 34.7 L, Plt Count 188 06/13/22 12:31: Sodium 136, Potassium 2.7 L*, BUN 12, Creatinine 0.88, Glucose 149 H, Magnesium 1.9, Total Bilirubin 0.6, AST 16, ALT 37, Alkaline Phosphatase 93 Conclusions/Impression: DIAGNOSES: # Failure to Thrive # Hypokalemia # Metastatic Prostate Cancer on Home Hospice # Advanced Alzheimer's Dementia # Asymptomatic COVID-19 Infection in Vaccinated Patient # Type II Diabetes Mellitus # Hypertension RECOMMENDATIONS: I had an extensive conversation with Ms. Huerta ( and MPOA), Mr. Caba (son), and Ms. Shepard (daughter) regarding Mr. Kohler's [id number]. We had a detailed discussion regarding whether or not he had expressed his wishes for end-of-life. They mention that he had always expressed that he "wanted to be comfortable." They endorse concerned that, since he is choosing not to eat, he may be starving himself. I explained that, at end-of-life, it is not uncommon for people to choose to eat less as they may not experience hunger to the same degree as they may have earlier in life. They stated that he has not complained of being hungry, and has never appeared uncomfortable to them. We discussed the possibility of admission, and what that process may entail. I discussed that, in the hospital, we could offer intravenous fluids, although his laboratory studies are not particularly concerning for severe dehydration. They inquired about the possibility of nutrition and I explained that alternatives to eating include tube feeds (either via NG tube or PEG tube) or intravenous (PPN or TPN). They endorse that he would never wish to have artificial nutrition, and he would only like to eat by mouth. They state that, in light of learning about alternatives to nutrition, they feel it would be most consistent with his wishes to be discharged home back to hospice services. I stated that, if they change their mind and wish to be admitted for a full nutritional assessment, they may return to the Emergency Department, and I will be happy to help. Daniel Rangel M.D. Time Spent Managing Pts care (In Minutes): 31
[2022-06-14 05:06] VITALS: TEMP 98.5
[2022-06-14 05:19] VITALS: BP 106/72; O2SAT 99
--- NOTE | 2022-06-14 17:11 | EKG ---
Test Date: 2022-06-13 Test Time: 14:13:11 Inside Sales Advisor: TM MEASUREMENT RESULTS: Intervals: Rate: 88 NH: 226 QRSD: 88 QT: 390 QTc: 471 [place]: P: 32 NH: 226 QRS: 14 T: 238 INTERPRETIVE STATEMENTS: Sinus rhythm with 1st degree AV block ST & T wave abnormality, consider inferior ischemia ST & T wave abnormality, consider anterolateral ischemia Prolonged QT Abnormal ECG Compared to ECG 07/10/2009 11:56:36 First degree AV block now present ST (T wave) deviation now present Possible ischemia now present Prolonged QT interval now present Sinus bradycardia no longer present Left ventricular hypertrophy no longer present Early repolarization no longer present Electronically Signed On 06-14-22 17:06:55 CDT by Arnav Wick
== END 2022-06-13 18:27 | disposition home or self-care (01) ==
LOC: ER 09:53
DX: U07.1 COVID-19 (principal); E87.6 Hypokalemia; N39.0 Urinary tract infection, site not specified; R53.1 Weakness; F03.90 Unspecified dementia, unspecified severity, without behavioral disturbance, psychotic disturbance, mood disturbance, and anxiety; I10 Essential (primary) hypertension; E11.9 Type 2 diabetes mellitus without complications; Z85.46 Personal history of malignant neoplasm of prostate
CPT/HCPCS: 96365; 93005; 87088; 85025; 87086; 80048; 36415; 83735; 84100; 85610; 80076; 84484; 83880; 71045; 99284; 96366; 87811; J3480 ×2; J7030; 81003; 81015; 87077; 87186